=== PATIENT | male | born 1965 | race American Indian/Alaskan Native ===

== ENCOUNTER 2017-09-12 06:40 | Day surgery (SDC) | payer BC ==
[2014-05-11 09:50] VITALS: BMI 30.1
[2017-09-12 07:43] LABS: BASO # 0.01 K/mm3 (0.0-2.0); BASO % 0.2 % (0.0-3.0); EOS # 0.1 (0.0-0.7); EOS % 1.1 % (1.5-5.0); GRAN # 2.71 (1.4-6.5); GRAN % 51.5 % (50.0-68.0); HEMOGLOBIN 14.9 g/dL (14.0-18.0); LYMPH % 37.1 % (22.0-35.0); MEAN CELL VOLUME 84.8 fl (80.0-105.0); MEAN CORPUSCULAR HEMOGLOBIN 27.6 pg (25.0-35.0); MEAN CORPUSCULAR HGB CONC 32.6 g/dl (31.0-37.0); MONO # 0.5 (0.1-0.6); MONO % 10.1 % (1.0-6.0); RBC 5.39 10^6/uL (3.5-6.1); RED CELL DISTRIBUTION WIDTH 13.5 % (11.5-14.5); WHITE BLOOD COUNT 5.3 10^3/ul (4.5-11.0)
[2017-09-12 07:48] LABS: BLOOD UREA NITROGEN 21 mg/dL (7-21); CALCIUM 10.2 mg/dL (8.4-10.5); GFR AFRICAN-AMERICAN > 60; GFR NON-AFRICAN AMERICAN > 60
[2017-09-12 07:56] LABS: INR 1.08 (0.93-1.08); PARTIAL THROMBOPLASTIN TIME 26.6 Seconds (25.1-36.5); PROTHROMBIN TIME 12.4 SECONDS (9.4-12.5)
[2017-09-12] MEDS ORDERED: Midazolam 2 MG/2 ML VIAL ONE (09:31)
[2017-09-12] MEDS ORDERED: Oxycodone/Acetaminophen 5/325 mg Tab PO PRN (10:10)
[2017-09-12] MEDS ORDERED: Sodium Chloride 0.45% 1,000 ML IV SCH (10:15)
[2017-09-12 11:14] VITALS: RESP 18; TEMP 97.8
[2017-09-12 12:15] VITALS: BP 110/80; PULSE 68; O2SAT 97
--- NOTE | 2017-09-12 18:18 | CT ---
PROCEDURE: CT guided left renal biopsy. HISTORY: 6 cm solid left upper pole renal mass. Evaluate for malignancy PHYSICIAN(S): Raul Rebolledo MD. TECHNIQUE: The relative risks and indications of the procedure were explained to the patient and consent obtained. The patient was placed prone on the CT scanner and preliminary images through the liver obtained. Conscious sedation and monitoring were provided throughout the procedure by a nurse. There is a 5.7 cm solid renal mass involving the left upper pole posteromedially.. A left posterior paraspinal approach was selected and the area prepped and draped in the usual sterile fashion. 1% Xylocaine was used to anesthetize the skin and soft tissues. A 17-gauge guiding needle was advanced into the 5.7 cm left renal mass. Its position was confirmed with CT. Using coaxial technique, multiple core biopsies were obtained. The postprocedure images show no evidence of significant hemorrhage. IMPRESSION: 1. CT-guided left renal biopsy as described above.
== END 2017-09-12 12:15 | disposition home or self-care (01) ==
LOC: SDS 06:40
PROVIDERS: ATTEND Radiology Vascular & Interventional Radiology
DX: C64.9 Malignant neoplasm of unspecified kidney, except renal pelvis (principal); I10 Essential (primary) hypertension; E78.5 Hyperlipidemia, unspecified; J45.909 Unspecified asthma, uncomplicated
CPT/HCPCS: 36415; 50200; 77012; 80048; 85025; 85610; 85730; 88305; J2250; J2405; J3010; J7030

== ENCOUNTER 2018-10-08 01:56 | Emergency (ER) | payer BC ==
[2018-10-08 02:11] VITALS: BMI 27.8
[2018-10-08 02:19] VITALS: RESP 18; TEMP 97.9
[2018-10-08] MEDS ORDERED: Morphine 2 mg/ml ISec ONE (04:26)
[2018-10-08] MEDS ORDERED: Morphine 2 mg/ml ISec IVP STA (04:26)
[2018-10-08 04:37] LABS: URINE BILIRUBIN NEGATIVE (NEGATIVE); URINE BLOOD NEGATIVE (NEGATIVE); URINE GLUCOSE (UA) NEGATIVE (NEGATIVE); URINE LEUKOCYTE ESTERASE NEGATIVE Leu/uL (NEGATIVE); URINE PROTEIN TRACE mg/dL (<30 mg/dL); URINE UROBILINOGEN 0.2 E.U./dL (<1 E.U./dL)
[2018-10-08 04:38] LABS: URINE APPEARANCE CLEAR (CLEAR); URINE COLOR YELLOW (YELLOW)
[2018-10-08 04:49] LABS: BASO # 0.01 K/mm3 (0.0-2.0); BASO % 0.1 % (0.0-3.0); EOS % 0.5 % (1.5-5.0); HEMOGLOBIN 15.2 g/dL (14.0-18.0); LYMPH % 25.2 % (22.0-35.0); MEAN CELL VOLUME 83.2 fl (80.0-105.0); MEAN CORPUSCULAR HEMOGLOBIN 27.8 pg (25.0-35.0); MEAN CORPUSCULAR HGB CONC 33.4 g/dl (31.0-37.0); MEAN PLATELET VOLUME 11.1 fl (7.0-11.0); MONO # 0.7 (0.1-0.6); RBC 5.47 10^6/uL (3.5-6.1); RED CELL DISTRIBUTION WIDTH 13.4 % (11.5-14.5); WHITE BLOOD COUNT 8.1 10^3/uL (4.5-11.0)
[2018-10-08 05:04] LABS: URINE EPITHELIAL CELLS 0 - 2 /hpf (0-5); URINE RBC 0 - 2 /hpf (0-2); URINE WBC 0 - 2 /hpf (0-6)
[2018-10-08 05:05] LABS: URINE BACTERIA RARE /hpf
[2018-10-08 05:42] LABS: ALB/GLOB RATIO 1.4 (1.1-1.8); ALBUMIN 4.5 g/dL (3.0-4.8); ALT/SGPT 29 U/L (7-56); AST/SGOT 67 U/L (17-59); BLOOD UREA NITROGEN 18 mg/dL (7-21); CALCIUM 9.8 mg/dL (8.4-10.5); GFR NON-AFRICAN AMERICAN > 60
--- NOTE | 2018-10-08 05:49 | ED PDOC ---
Arrival/HPI - General Chief Complaint: Back Pain Time Seen by Provider: 10/08/18 04:00 Historian: Patient - History of Present Illness Narrative History of Present Illness (Text): 10/08/18 05:37 53 year old male, whose past medical history includes hypertension and hyperlipidemia, presents to the emergency department with left mid/lower back pain, since yesterday. Patient denies any trauma to the area. Patient informs of past history of left kidney tumor that was removed. Patient states he used some Maxime Wolfe and Tylenol tonight, which did not help with pain much. Patient denies any trauma, bowel or bladder incontinence, paresthesias, weakness, fevers, chills, headache, dizziness, chest pain, shortness of breath, cough, abdominal pain, nausea, vomiting, diarrhea, neck pain, or any other complaint. Time/Duration: 24 hours Symptom Onset: Gradual Symptom Course: Unchanged Quality: Aching Activities at Onset: Light Context: Home Past Medical History - Provider Review Nursing Documentation Reviewed: Yes - Infectious Disease Hx of Infectious Diseases: None - Tetanus Immunization Tetanus Immunization: Unknown - Cardiac Hx Cardiac Disorders: Yes Hx Hypertension: Yes Hx Pacemaker: No - Neurological Hx Paralysis: No - Renal Hx Renal Disorder: Yes Hx Renal Cancer: Yes (tumor to left kidney (tumor removed 12/2017)) - Hematological/Oncological Hx Blood Transfusions: No - Integumentary Hx Dermatological Disorder: No - Musculoskeletal/Rheumatological Hx Musculoskeletal Disorders: No - Gastrointestinal Hx Gastrointestinal Disorders: Yes Other/Comment: hernia - Psychiatric Hx Emotional Abuse: No Hx Physical Abuse: No Hx Substance Use: No - Surgical History Other/Comment: 12/2017 - tumor removed to left kidney. 12/2017 - hernia repair. - Anesthesia Hx Anesthesia: Yes Hx Anesthesia Reactions: No Hx Malignant Hyperthermia: No - Suicidal Assessment Feels Threatened In Home Enviroment: No Family/Social History - Physician Review Nursing Documentation Reviewed: Yes Family/Social History: No Known Family HX Smoking Status: Never Smoked Hx Alcohol Use: No Hx Substance Use: No Allergies/Home Meds Allergies/Adverse Reactions: Allergies No Known Allergies Allergy (Unverified 10/08/18 02:11) Home Medications: Home Meds Medication Instructions Recorded Confirmed Calcium Carbonate [Calcium] 500 mg PO DAILY 09/10/17 09/12/17 Cyclobenzaprine [Cyclobenzaprine 10 mg PO DAILY 09/10/17 09/12/17 HCl] Ramipril [Altace] 5 mg PO DAILY 09/10/17 09/12/17 Sildenafil Citrate [Viagra] 50 mg PO PRN PRN 09/10/17 09/12/17 Silodosin [Rapaflo] 4 mg PO DAILY 09/10/17 09/12/17 Rosuvastatin Calcium [Crestor] 20 mg PO DAILY 09/12/17 09/12/17 Review of Systems - Review of Systems Constitutional: absent: Fevers, Night Sweats Respiratory: absent: SOB, Cough Cardiovascular: absent: Chest Pain Gastrointestinal: absent: Abdominal Pain, Diarrhea, Nausea, Vomiting Musculoskeletal: Back Pain. absent: Neck Pain Neurological: absent: Headache, Dizziness Physical Exam Vital Signs Reviewed: Yes Vital Signs Temp Pulse Resp BP Pulse Ox 10/08/18 04:16 85 18 151/96 H 98 10/08/18 02:18 97.9 F 84 18 168/96 H 98 Temperature: Afebrile Blood Pressure: Normal Pulse: Regular Respiratory Rate: Normal Appearance: Positive for: Well-Appearing, Non-Toxic, Comfortable Pain Distress: None Mental Status: Positive for: Alert and Oriented X 3 - Systems Exam Head: Present: Atraumatic, Normocephalic Pupils: Present: PERRL Extroacular Muscles: Present: EOMI Conjunctiva: Present: Normal Mouth: Present: Moist Mucous Membranes Neck: Present: Normal Range of Motion Respiratory/Chest: Present: Clear to Auscultation, Good Air Exchange. No: Respiratory Distress, Accessory Muscle Use Cardiovascular: Present: Regular Rate and Rhythm, Normal S1, S2. No: Murmurs Abdomen: No: Tenderness, Distention, Peritoneal Signs Back: Present: Normal Inspection (no tenderness, no CVA tenderness) Upper Extremity: Present: Normal Inspection, NORMAL PULSES. No: Cyanosis, Edema Lower Extremity: Present: Normal Inspection, NORMAL PULSES. No: Edema Neurological: Present: GCS=15, CN II-XII Intact, Speech Normal, Motor Func Grossly Intact, Normal Sensory Function, Norm Deep Tendon Reflexes, Gait Normal Skin: Present: Warm, Dry, Normal Color. No: Rashes Psychiatric: Present: Alert, Oriented x 3, Normal Insight, Normal Concentration Medical Decision Making ED Course and Treatment: 10/08/18 05:51 Impression: 53 year old male presents with back pain Plan: -- CT ABD and Pelvis -- Morphine -- Labs -- Reassess and disposition Prior Visits: Notes and results from previous visits were reviewed. Progress Notes: 10/08/18 06:56 Patient reassessed, states he feels better. Results of w/u d/w patient. Patient's K+ slightly elevated at 5.1, says he will cut back on high K+ foods. CT interpreted by rad as fullness in left collecting system w/mild left fat perinephric stranding, recent passage of stone vs. ascending UTI. Pt denies urinary symptoms; UA negative. UCX pending.Patient now remembers pushing a heavy laundry cart yesterday at work. Patient requests muscle relaxer, will Rx Flexeril. Patient has an appointment w/pcp tomorrow. Stable for d/c home. Verbalized understanding to f/u tomorrow w/pcp and RTED for new, worsening or concerning symptoms. - Lab Interpretations Lab Results: Urine Color Yellow (YELLOW) 10/08/18 03:32 Urine Appearance Clear (CLEAR) 10/08/18 03:32 Urine pH 6.0 (4.7-8.0) 10/08/18 03:32 Ur Specific [place] >= 1.030 (1.005-1.035) 10/08/18 03:32 Urine Protein Trace mg/dL (<30 mg/dL) H 10/08/18 03:32 Urine Glucose (UA) Negative mg/dL (NEGATIVE) 10/08/18 03:32 Urine Ketones Negative mg/dL (NEGATIVE) 10/08/18 03:32 Urine Blood Negative (NEGATIVE) 10/08/18 03:32 Urine Nitrate Negative (NEGATIVE) 10/08/18 03:32 Urine Bilirubin Negative (NEGATIVE) 10/08/18 03:32 Urine Urobilinogen 0.2 E.U./dL (<1 E.U./dL) 10/08/18 03:32 Ur Leukocyte Esterase Negative Amaya/uL (NEGATIVE) 10/08/18 03:32 Urine RBC 0 - 2 /hpf (0-2) 10/08/18 03:32 Urine WBC 0 - 2 /hpf (0-6) 10/08/18 03:32 Ur Epithelial Cells 0 - 2 /hpf (0-5) 10/08/18 03:32 Urine Bacteria Rare /hpf (NONE) 10/08/18 03:32 - RAD Interpretation Radiology Orders: 10/08/18 04:16 ABD & PELVIS W/O PO OR IV CONT [CT] Stat - Medication Orders Current Medication Orders: Discontinued Medications Morphine Sulfate (Morphine) 2 mg IVP STAT STA Stop: 10/08/18 04:27 Last Admin: 10/08/18 04:28 Dose: 2 mg MAR Pain Assessment Document 10/08/18 04:28 (Rec: 10/08/18 05:02 [id number]) Pain Reassessment Is this a pain reassessment? Yes Sleep Is patient sleeping during reassessment? No Presence of Pain Presence of Pain Yes Pain Scale Used Protocol: PSCALES Pain Scale Used Numeric Location Left, Right or Bilateral Left Upper or Lower Lower Pain Location Body Site Back Description Description Constant Intensity of Pain at present 10 Pain Behavior Moaning Withdrawal from Touch Facial Grimacing Aggravating Factors Contant IVP Administration Document 10/08/18 04:28 (Rec: 10/08/18 05:02 [id number]) Charges for Administration # of IVP Administrations 1 - Scribe Statement The provider has reviewed the documentation as recorded by the Scribe Raul Solo Provider Scribe Attestation: All medical record entries made by the Scribe were at my direction and personally dictated by me. I have reviewed the chart and agree that the record accurately reflects my personal performance of the history, physical exam, medic al decision making, and the department course for this patient. I have also personally directed, reviewed, and agree with the discharge instructions and disposition. Disposition/Present on Arrival - Present on Arrival Any Indicators Present on Arrival: No History of DVT/PE: No History of Uncontrolled Diabetes: No Urinary Catheter: No History of Decub. Ulcer: No History Surgical Site Infection Following: None - Disposition Have Diagnosis and Disposition been Completed?: Yes Diagnosis: Back pain, Muscle strain Disposition: HOME/ ROUTINE Disposition Time: 07:05 Patient Plan: Discharge Condition: IMPROVED Discharge Instructions (ExitCare): Muscle Strain (DC), Upper Back Pain (DC) Prescriptions: Cyclobenzaprine [Cyclobenzaprine HCl] 10 mg PO BID PRN #15 tab PRN Reason: Muscle Spasm Referrals: Rob Chatman MD [Primary Care Provider] - Follow up with primary Forms: [employer] ([place]), WORK NOTE
[2018-10-08 07:11] VITALS: BP 143/80; PULSE 78; O2SAT 97
--- NOTE | 2018-10-08 12:08 | CT ---
Date of service: 10/08/2018 PROCEDURE: CT Abdomen and Pelvis without intravenous contrast HISTORY: Flank pain. Relevant interventional procedure(s): CT directed left renal biopsy. Relevant surgical history: Appendectomy, umbilical hernia surgery. COMPARISON: None. TECHNIQUE: Unenhanced. Neither IV nor oral contrast administered Radiation dose: Total exam DLP = 596.98 mGy-cm. This CT exam was performed using one or more of the following dose reduction techniques: Automated exposure control, adjustment of the mA and/or kV according to patient size, and/or use of iterative reconstruction technique. FINDINGS: LOWER THORAX: Distal esophageal thickening may reflect esophagitis. LIVER: Unremarkable. No gross lesion or ductal dilatation. GALLBLADDER AND BILE DUCTS: Unremarkable. PANCREAS: Unremarkable. No gross lesion or ductal dilatation. SPLEEN: Unremarkable. ADRENALS: Unremarkable. No mass. KIDNEYS AND URETERS: Unremarkable. No hydronephrosis. No solid mass. Left renal mass and apparent on the prior study is not visible on the present study suggesting prior surgical resection. VASCULATURE: Unremarkable. No aortic aneurysm. No atherosclerotic calcification or mural plaque present. BOWEL: Unremarkable. No obstruction. No gross mural thickening. APPENDIX: A normal appendix is not visible. Findings consistent with prior appendectomy. PERITONEUM: Unremarkable. No free fluid. No free air. LYMPH NODES: Unremarkable. No enlarged lymph nodes. BLADDER: Unremarkable. REPRODUCTIVE: Unremarkable. BONES: No acute fracture. OTHER FINDINGS: Postoperative findings related to prior left inguinal herniorrhaphy. IMPRESSION: No acute findings related to/ accounting for the clinical presentation. Additional benign and/or incidental findings described above. Concordant findings (preliminary report) provided by [employer].
== END 2018-10-08 07:12 | disposition home or self-care (01) ==
LOC: ED 01:56
DX: M54.9 Dorsalgia, unspecified (principal); S29.012A Strain of muscle and tendon of back wall of thorax, initial encounter; X58.XXXA Exposure to other specified factors, initial encounter; I10 Essential (primary) hypertension; Z85.528 Personal history of other malignant neoplasm of kidney
CPT/HCPCS: 74176; 80053; 81001; 85025; 87086; 96374; 99284; J2270